=== PATIENT | female | born 1995 | race Two or more races ===

== ENCOUNTER 2022-07-18 13:38 | Emergency (ER) | payer OTHER, SELFPAY ==
--- NOTE | ~2022-07-18 | CT_ITS ---
EXAMINATION: CT HEAD WITHOUT CONTRAST CLINICAL INFORMATION: Headache and blurry vision. COMPARISON: No relevant prior imaging. TECHNIQUE: Contiguous axial imaging was performed from the skull base to vertex without intravenous administration of contrast. This CT examination was performed using dose optimization techniques as appropriate, variously including the following: *Automated exposure control *Adjustment of mA and/or kV according to patient size (this includes techniques or standardized protocols for targeted exams where dose is matched to indication/reason for exam; i.e. extremities or head) *Use of iterative reconstruction technique DLP: 635 mGy-cm FINDINGS: There is no acute intracranial hemorrhage or abnormal extra-axial collection. No intracranial mass effect or midline shift. Lateral and third ventricles are normal. No hydrocephalus. Carrillo-white matter differentiation is preserved and there is no evidence of acute territorial infarct. The calvarium and skull base are intact. Mastoid air cells and middle ear cavities are well aerated. No active paranasal sinus disease. CT/CT head/brain wo IV con IMPRESSION: Normal CT scan of the head.
--- NOTE | 2022-07-18 13:50 | ED_ITS ---
HPI - General Adult General Chief complaint: Headache <PALAK Slater - Last Filed: 07/18/22 13:53> Stated complaint: Headache/Blurry vision <PALAK Slater - Last Filed: 07/18/22 13:53> Time Seen by Provider: 07/18/22 15:07 <PALAK Slater - Last Filed: 07/18/22 13:53> History of Present Illness HPI narrative: patient complains of headache off and on for the last 6 days, headache is gradual onset no thunderclap Light does hurt her eyes there has been no vomiting there was no trauma no fever no weakness no loss of muscle strength no loss of balance no confusion the headache switches from side to side, it is accompanied but which she descr ibes as blurry vision but not a loss of vision no double vision, no difficulty ambulating no balance issues, she is eating and drinking normally no runny nose no cough no congestion no recent illness <PALAK Roth Last Filed: 07/18/22 15:36> Related Data Home medications: Previous Rx's Medication Instructions Recorded acetaminophen 500 mg tablet 1,000 mg PO TID PRN pain #30 tabs 07/18/22 ibuprofen 600 mg tablet 600 mg PO Q6H PRN pain #20 tabs 07/18/22 <PALAK Slater - Last Filed: 07/18/22 13:53> Allergies/adverse reactions: Allergies Allergy/AdvReac Type Severity Reaction Status Date / Time No Known Allergies Allergy Verified 07/18/22 13:50 <PALAK Slater Last Filed: 07/18/22 13:53> [facility] Past Medical History Source: nursing notes reviewed <PALAK Roth - Last Filed: 07/18/22 15:36> Physical Exam ED Vital Signs: Vital Signs - 24 hr 07/18/22 13:51 07/18/22 14:48 Temperature 98 F 98.3 F Pulse Rate 84 77 Respiratory Rate 18 16 Blood Pressure 113/40 L 103/63 Pulse Oximetry 99 99 Oxygen Delivery Method Room Air Room Air BMI result Body Mass Index 25.9 <PALAK Slater Last Filed: 07/18/22 13:53> Vital Signs - 24 hr 07/18/22 13:51 07/18/22 14:48 Temperature 98 F 98.3 F Pulse Rate 84 77 Respiratory Rate 18 16 Blood Pressure 113/40 L 103/63 Pulse Oximetry 99 99 Oxygen Delivery Method Room Air Room Air BMI result Body Mass Index 25.9 <PALAK Roth Filed: 07/18/22 15:36> general appearance is no acute distress, and cooperative Eyes pupils equal round reactive to light extraocular motions are intact The pharynx is clear the neck is supple the chest is clear to auscultation bilateral the heart no murmur <PALAK Roth Last Filed: 07/18/22 15:36> Course Course Course Narrative: RME performed by Marta Hill PA-C. Patient is a 26 year old female presenting to the emergency department with a headache x 6 days, blurry vision, and photosensitivity. Labs + imaging ordered. Patient placed back in waiting room pending room availability and results. <PALAK Slater Filed: 07/18/22 13:53> RME performed by Marta Hill PA-C. Patient is a 26 year old female presenting to the emergency department with a headache x 6 days, blurry vision, and photosensitivity. Labs + imaging ordered. Patient placed back in waiting room pending room availability and results. Patient with headache for 6 days was seen after results of CT scan and labs were back Head CT was normal no acute findings and blood work was nondiagnostic with no significant acute abnormalities Neurologic exam was normal and patient is well-appearing, was treated with possible migraine treatment but cause of headache is unknown She will follow with primary doctor and ambulated from ER easily <PALAK Roth Last Filed: 07/18/22 15:36> Medications Administered Discontinued Medications Generic Name Dose Route Start Last Admin Trade Name Freq PRN Reason Stop Dose Admin Dexamethasone 10 mg 07/18/22 15:21 07/18/22 15:30 Dexamethasone 2 Mg Tablet PO 07/18/22 15:22 10 mg ONCE ONE Administration Diphenhydramine HCl 25 mg 07/18/22 15:21 07/18/22 15:30 Diphenhydramine Hcl 25 Mg Capsule PO 07/18/22 15:22 25 mg ONCE ONE Administration Ketorolac Tromethamine 30 mg 07/18/22 15:21 07/18/22 15:30 Ketorolac Tromethamine 30 Mg/Ml Vial IM 07/18/22 15:22 30 mg ONCE ONE Administration <PALAK Slater - Last Filed: 07/18/22 13:53> Medications Administered Discontinued Medications Generic Name Dose Route Start Last Admin Trade Name Porsha PRN Reason Stop Dose Admin Dexamethasone 10 mg 07/18/22 15:21 07/18/22 15:30 Dexamethasone 2 Mg Tablet PO 07/18/22 15:22 10 mg ONCE ONE Administration Diphenhydramine HCl 25 mg 07/18/22 15:21 07/18/22 15:30 Diphenhydramine Hcl 25 Mg Capsule PO 07/18/22 15:22 25 mg ONCE ONE Administration Ketorolac Tromethamine 30 mg 07/18/22 15:21 07/18/22 15:30 Ketorolac Tromethamine 30 Mg/Ml Vial IM 07/18/22 15:22 30 mg ONCE ONE Administration <PALAK Roth - Last Filed: 07/18/22 15:36> Medical Decision Making Lab Data Result Diagrams: 07/18/22 14:07 07/18/22 14:07 <PALAK Slater - Last Filed: 07/18/22 13:53> Labs: Lab Results 07/18/22 07/18/22 07/18/22 Range/Units 14:07 14:07 14:07 WBC 6.1 (4.8-10.8) X10*3/uL RBC 4.86 (4.20-5.50) X10*6/uL Hgb 12.3 (12.0-16.0) g/dl Hct 38.7 (37.0-47.0) % MCV 79.6 L (80.0-98.0) fL MCH 25.3 L (27.0-33.0) pg MCHC 31.8 (31.0-35.0) g/dl RDW 13.5 (11.0-16.0) % Plt Count 318 (160-400) X10*3/uL MPV 10.3 (9.4-12.3) fL Immature Gran % (Auto) 0.3 (0.0-0.4) % Neut % (Auto) 65.5 (45-73) % Lymph % (Auto) 26.2 (20-40) % Lassen % (Auto) 6.2 (2-11) % Eos % (Auto) 1.5 (0-4) % Baso % (Auto) 0.3 (0-2) % Lymph # (Auto) 1.6 (1.2-4.9) X10*3/uL Lassen # (Auto) 0.4 (0.1-1.2) X10*3/uL Eos # (Auto) 0.1 (0.0-0.4) X10*3/uL Baso # (Auto) 0.0 (0.0-0.2) X10*3/uL Abs Immat Gran (auto) 0.02 (0.00-0.03) X10*3/uL Absolute Neuts (auto) 4.0 (2.0-8.3) x10*3/uL Absolute Nucleated RBC 0.000 (0.0-0.012) X10*3/uL Nucleated RBC % (auto) 0.0 (0.0-0.2) /100WBC ESR 12 (0-20) MM/HR Sodium 140 (135-145) mmol/L Potassium 4.2 (3.3-5.1) mmol/L Chloride 106 (96-108) mmol/L Carbon Dioxide 24 (22-29) mmol/L Anion Gap 14 (12-20) BUN 11 (9-16) mg/dL Creatinine 0.72 (0.5-1.4) mg/dL Estim Creat Clear Calc 105.2 Estimated GFR > 60 Random Glucose 103 (60-115) mg/dL Calcium 9.4 (8.4-10.2) mg/dL Magnesium 2.1 (1.6-2.6) mg/dL Total Bilirubin 0.3 (0.0-1.0) mg/dL AST 14 (5-31) U/L ALT 15 (0-31) U/L Alkaline Phosphatase 47 (39-117) U/L C-Reactive Protein < 0.10 (< or = 0.50) mg/dL Total Protein 6.8 (6.5-8.0) g/dL Albumin 4.2 (3.5-5.0) g/dL Influenza Type A (PCR) (Negative) Influenza Type B (PCR) (Negative) RSV RNA Qual (PCR) (Negative) SARS-CoV-2 RNA (RT-PCR) (Negative) 07/18/22 Range/Units 14:07 WBC (4.8-10.8) X10*3/uL RBC (4.20-5.50) X10*6/uL Hgb (12.0-16.0) g/dl Hct (37.0-47.0) % MCV (80.0-98.0) fL MCH (27.0-33.0) pg MCHC (31.0-35.0) g/dl RDW (11.0-16.0) % Plt Count (160-400) X10*3/uL MPV (9.4-12.3) fL Immature Gran % (Auto) (0.0-0.4) % Neut % (Auto) (45-73) % Lymph % (Auto) (20-40) % Lassen % (Auto) (2-11) % Eos % (Auto) (0-4) % Baso % (Auto) (0-2) % Lymph # (Auto) (1.2-4.9) X10*3/uL Lassen # (Auto) (0.1-1.2) X10*3/uL Eos # (Auto) (0.0-0.4) X10*3/uL Baso # (Auto) (0.0-0.2) X10*3/uL Abs Immat Gran (auto) (0.00-0.03) X10*3/uL Absolute Neuts (auto) (2.0-8.3) x10*3/uL Absolute Nucleated RBC (0.0-0.012) X10*3/uL Nucleated RBC % (auto) (0.0-0.2) /100WBC ESR (0-20) MM/HR Sodium (135-145) mmol/L Potassium (3.3-5.1) mmol/L Chloride (96-108) mmol/L Carbon Dioxide (22-29) mmol/L Anion Gap (12-20) BUN (9-16) mg/dL Creatinine (0.5-1.4) mg/dL Estim Creat Clear Calc Estimated GFR Random Glucose (60-115) mg/dL Calcium (8.4-10.2) mg/dL Magnesium (1.6-2.6) mg/dL Total Bilirubin (0.0-1.0) mg/dL AST (5-31) U/L ALT (0-31) U/L Alkaline Phosphatase (39-117) U/L C-Reactive Protein (< or = 0.50) mg/dL Total Protein (6.5-8.0) g/dL Albumin (3.5-5.0) g/dL Influenza Type A (PCR) NEGATIVE (Negative) Influenza Type B (PCR) NEGATIVE (Negative) RSV RNA Qual (PCR) NEGATIVE (Negative) SARS-CoV-2 RNA (RT-PCR) NEGATIVE (Negative) <PALAK Slater - Last Filed: 07/18/22 13:53> Lab Results 07/18/22 07/18/22 07/18/22 Range/Units 14:07 14:07 14:07 WBC 6.1 (4.8-10.8) X10*3/uL RBC 4.86 (4.20-5.50) X10*6/uL Hgb 12.3 (12.0-16.0) g/dl Hct 38.7 (37.0-47.0) % MCV 79.6 L (80.0-98.0) fL MCH 25.3 L (27.0-33.0) pg MCHC 31.8 (31.0-35.0) g/dl RDW 13.5 (11.0-16.0) % Plt Count 318 (160-400) X10*3/uL MPV 10.3 (9.4-12.3) fL Immature Gran % (Auto) 0.3 (0.0-0.4) % Neut % (Auto) 65.5 (45-73) % Lymph % (Auto) 26.2 (20-40) % Lassen % (Auto) 6.2 (2-11) % Eos % (Auto) 1.5 (0-4) % Baso % (Auto) 0.3 (0-2) % Lymph # (Auto) 1.6 (1.2-4.9) X10*3/uL Lassen # (Auto) 0.4 (0.1-1.2) X10*3/uL Eos # (Auto) 0.1 (0.0-0.4) X10*3/uL Baso # (Auto) 0.0 (0.0-0.2) X10*3/uL Abs Immat Gran (auto) 0.02 (0.00-0.03) X10*3/uL Absolute Neuts (auto) 4.0 (2.0-8.3) x10*3/uL Absolute Nucleated RBC 0.000 (0.0-0.012) X10*3/uL Nucleated RBC % (auto) 0.0 (0.0-0.2) /100WBC ESR 12 (0-20) MM/HR Sodium 140 (135-145) mmol/L Potassium 4.2 (3.3-5.1) mmol/L Chloride 106 (96-108) mmol/L Carbon Dioxide 24 (22-29) mmol/L Anion Gap 14 (12-20) BUN 11 (9-16) mg/dL Creatinine 0.72 (0.5-1.4) mg/dL Estim Creat Clear Calc 105.2 Estimated GFR > 60 Random Glucose 103 (60-115) mg/dL Calcium 9.4 (8.4-10.2) mg/dL Magnesium 2.1 (1.6-2.6) mg/dL Total Bilirubin 0.3 (0.0-1.0) mg/dL AST 14 (5-31) U/L ALT 15 (0-31) U/L Alkaline Phosphatase 47 (39-117) U/L C-Reactive Protein < 0.10 (< or = 0.50) mg/dL Total Protein 6.8 (6.5-8.0) g/dL Albumin 4.2 (3.5-5.0) g/dL Influenza Type A (PCR) (Negative) Influenza Type B (PCR) (Negative) RSV RNA Qual (PCR) (Negative) SARS-CoV-2 RNA (RT-PCR) (Negative) 07/18/22 Range/Units 14:07 WBC (4.8-10.8) X10*3/uL RBC (4.20-5.50) X10*6/uL Hgb (12.0-16.0) g/dl Hct (37.0-47.0) % MCV (80.0-98.0) fL MCH (27.0-33.0) pg MCHC (31.0-35.0) g/dl RDW (11.0-16.0) % Plt Count (160-400) X10*3/uL MPV (9.4-12.3) fL Immature Gran % (Auto) (0.0-0.4) % Neut % (Auto) (45-73) % Lymph % (Auto) (20-40) % Lassen % (Auto) (2-11) % Eos % (Auto) (0-4) % Baso % (Auto) (0-2) % Lymph # (Auto) (1.2-4.9) X10*3/uL Lassen # (Auto) (0.1-1.2) X10*3/uL Eos # (Auto) (0.0-0.4) X10*3/uL Baso # (Auto) (0.0-0.2) X10*3/uL Abs Immat Gran (auto) (0.00-0.03) X10*3/uL Absolute Neuts (auto) (2.0-8.3) x10*3/uL Absolute Nucleated RBC (0.0-0.012) X10*3/uL Nucleated RBC % (auto) (0.0-0.2) /100WBC ESR (0-20) MM/HR Sodium (135-145) mmol/L Potassium (3.3-5.1) mmol/L Chloride (96-108) mmol/L Carbon Dioxide (22-29) mmol/L Anion Gap (12-20) BUN (9-16) mg/dL Creatinine (0.5-1.4) mg/dL Estim Creat Clear Calc Estimated GFR Random Glucose (60-115) mg/dL Calcium (8.4-10.2) mg/dL Magnesium (1.6-2.6) mg/dL Total Bilirubin (0.0-1.0) mg/dL AST (5-31) U/L ALT (0-31) U/L Alkaline Phosphatase (39-117) U/L C-Reactive Protein (< or = 0.50) mg/dL Total Protein (6.5-8.0) g/dL Albumin (3.5-5.0) g/dL Influenza Type A (PCR) NEGATIVE (Negative) Influenza Type B (PCR) NEGATIVE (Negative) RSV RNA Qual (PCR) NEGATIVE (Negative) SARS-CoV-2 RNA (RT-PCR) NEGATIVE (Negative) <PALAK Roth - Last Filed: 07/18/22 15:36> Discharge Plan Discharge Clinical Impression: Headache <PALAK Slater - Last Filed: 07/18/22 13:53> Patient Disposition: Home, Self-Care <PALAK Slater Last Filed: 07/18/22 13:53> Additional Instructions: your head CT was normal with no evidence of tumor or bleeding or mass The headache does not seem dangerous but we are not sure what is the cause We treated in the ER for possible migraine Follow with primary doctor for further evaluation If headaches reach car and your doctor thinks this is migraine he can write for some medications to be taken right away at the start of a headache to prevent it from getting worse Return any time for worsening or more severe headache vomiting any worse condition or any concerns <PALAK Slater - Last Filed: 07/18/22 13:53> Prescriptions: New ibuprofen 600 mg tablet 600 mg PO Q6H PRN (Reason: pain) Qty: 20 0RF acetaminophen 500 mg tablet 1,000 mg PO TID PRN (Reason: pain) Qty: 30 0RF <PALAK Slater - Last Filed: 07/18/22 13:53>
[2022-07-18 13:51] VITALS: BP 113/40; PULSE 84; RESP 18; TEMP 36.6; O2SAT 99; BMI 25.9
[2022-07-18 14:12] LABS: MANUAL DIFF FLAG NO
[2022-07-18 14:17] LABS: Basophils Percent Auto 0.3 % (0-2); Eosinophils Absolute Auto 0.1 X10*3/uL (0.0-0.4); Eosinophils Percent Auto 1.5 % (0-4); Hematocrit 38.7 % (37.0-47.0); Hemoglobin 12.3 g/dl (12.0-16.0); Imm Gran Abs Auto 0.02 X10*3/uL (0.00-0.03); Imm Gran Pct Auto 0.3 % (0.0-0.4); Lymphocytes Absolute Auto 1.6 X10*3/uL (1.2-4.9); Lymphocytes Percent Auto 26.2 % (20-40); Mean Corpuscular HGB Conc 31.8 g/dl (31.0-35.0); Mean Corpuscular Hemoglobin 25.3 pg (27.0-33.0); Mean Corpuscular Volume 79.6 fL (80.0-98.0); Mean Platelet Volume 10.3 fL (9.4-12.3); Monocytes Absolute Auto 0.4 X10*3/uL (0.1-1.2); Monocytes Percent Auto 6.2 % (2-11); Neutrophils Percent Auto 65.5 % (45-73); Platelet Count 318 X10*3/uL (160-400); Red Blood Count 4.86 X10*6/uL (4.20-5.50); Red Cell Distribution Width 13.5 % (11.0-16.0); White Blood Count 6.1 X10*3/uL (4.8-10.8)
[2022-07-18 14:28] LABS: Alanine Aminotransferase 15 U/L (0-31); Albumin Level 4.2 g/dL (3.5-5.0); Alkaline Phosphatase 47 U/L (39-117); Anion Gap 14 (12-20); Aspartate Amino Transferase 14 U/L (5-31); Bilirubin Total 0.3 mg/dL (0.0-1.0); Blood Urea Nitrogen 11 mg/dL (9-16); C Reactive Protein < 0.10 mg/dL (< or = 0.50); Calcium 9.4 mg/dL (8.4-10.2); Carbon Dioxide 24 mmol/L (22-29); Chloride 106 mmol/L (96-108); Creatinine Clr Calc Pharmacy 105.2; Estimated Glomerular Filt Rate > 60; Glucose Random 103 mg/dL (60-115); Magnesium 2.1 mg/dL (1.6-2.6); Potassium 4.2 mmol/L (3.3-5.1); Sodium 140 mmol/L (135-145); Total Protein 6.8 g/dL (6.5-8.0)
[2022-07-18 14:48] VITALS: BP 103/63; PULSE 77; RESP 16; TEMP 36.8; O2SAT 99
[2022-07-18 14:54] LABS: Influenza A PCR NEGATIVE (Negative); Influenza B PCR NEGATIVE (Negative); Resp Syncy Virus RNA Qual PCR NEGATIVE (Negative); SARS COV2 PCR INHOUSE NEGATIVE (Negative)
[2022-07-18 14:57] LABS: Erythrocyte Sedimentation Rate 12 MM/HR (0-20)
[2022-07-18] MEDS: dexAMETHasone 2 MG TABLET 10 MG PO (15:30)
[2022-07-18] MEDS: Ketorolac Tromethamine 30 MG/ML VIAL IM (15:30)
[2022-07-18] MEDS: diphenhydrAMINE HCL 25 MG CAPSULE PO (15:30)
== END 2022-07-18 15:50 | disposition home or self-care (01) ==
PROVIDERS: Physician Assistant Medical; Emergency Provider Emergency Medicine; PCP Hospitalist
DX: R51.9 Headache, unspecified (principal); H53.8 Other visual disturbances; Z20.822 Contact with and (suspected) exposure to COVID-19; Z20.828 Contact with and (suspected) exposure to other viral communicable diseases; Z79.899 Other long term (current) drug therapy
CPT/HCPCS: 0241U; 36415; 70450; 80053; 83735; 85025; 85652; 86140; 96372; 99283; 99284; J1885; J8540

== ENCOUNTER 2022-08-15 13:20 | Emergency (ER) | payer OTHER, SELFPAY ==
[2022-08-15 13:38] VITALS: BP 132/72; PULSE 95; RESP 20; TEMP 36.5; O2SAT 100; BMI 26.5
--- NOTE | 2022-08-15 13:38 | ED.GENADULT ---
HPI - General Adult General Chief complaint: Weakness <Juliana Guevara CNP - Last Filed: 08/15/22 20:47> Stated complaint: Weakness/Vomiting <Juliana Guevara CNP - Last Filed: 08/15/22 20:47> Time Seen by Provider: 08/15/22 22:21 <Juliana Guevara CNP - Last Filed: 08/15/22 20:47> Source: patient <Annemarie Ramos MD - Last Filed: 08/16/22 00:28> Mode of arrival: ambulatory <Annemarie Ramos MD - Last Filed: 08/16/22 00:28> History of Present Illness HPI narrative: 26-year-old female who is diagnosed with viral infection yesterday and started having nausea and vomiting after she swallowed too close of garlic an attempt to ?get better?. She states that she feels some pressure at the epigastric and that the antinausea medication that she received earlier fall in the waiting room has not significantly reduce the pressure and she still feels mildly nauseous. Otherwise, she denies any fevers or chills. <Annemarie Ramos MD - Last Filed: 08/16/22 00:28> Related Data Home medications: Previous Rx's Medication Instructions Recorded acetaminophen 500 mg tablet 1,000 mg PO TID PRN pain #30 tabs 07/18/22 mltpbqcprn-xfhfhbqohrfvb-tcaaxgih 1 cap PO Q6H PRN pain #10 caps 07/18/22 50 mg-300 mg-40 mg capsule (Fioricet) ibuprofen 600 mg tablet 600 mg PO Q6H PRN pain #20 tabs 07/18/22 ondansetron HCl 4 mg tablet 4 mg PO Q6H PRN nausea and 08/16/22 vomiting #10 tabs <Juliana Guevara CNP - Last Filed: 08/15/22 20:47> Allergies/adverse reactions: Allergies Allergy/AdvReac Type Severity Reaction Status Date / Time No Known Allergies Allergy Verified 07/18/22 13:50 <Juliana Guevara CNP - Last Filed: 08/15/22 20:47> Review of Systems Review of Systems: Pertinent positives and negatives as stated in HPI <Annemarie Ramos MD - Last Filed: 08/16/22 00:28> [facility] Past Medical History Source: nursing notes reviewed <Annemarie Ramos MD - Last Filed: 08/16/22 00:28> Social History Social History: Social History Advance Directives: No Advance Directives Information Provided: No <Juliana GuevaraMUSTAPHA - Last Filed: 08/15/22 20:47> Physical Exam ED Vital Signs: Vital Signs - 24 hr 08/15/22 13:38 08/15/22 21:17 Temperature 97.7 F 97.8 F Pulse Rate 95 92 Respiratory Rate 20 16 Blood Pressure 132/72 116/55 L Pulse Oximetry 100 99 Oxygen Delivery Method Room Air Room Air BMI result Body Mass Index 26.5 <Juliana ParkerMUSTAPHA issa - Last Filed: 08/15/22 20:47> Vital Signs - 24 hr 08/15/22 13:38 08/15/22 21:17 Temperature 97.7 F 97.8 F Pulse Rate 95 92 Respiratory Rate 20 16 Blood Pressure 132/72 116/55 L Pulse Oximetry 100 99 Oxygen Delivery Method Room Air Room Air BMI result Body Mass Index 26.5 VITAL SIGNS: Reviewed. GENERAL: Well developed, well nourished, in no acute distress. HEAD: Normocephalic/atraumatic EYES: PERRLA, EOMI LUNGS: Normal breath sounds. No adventitious sounds or accessory muscle use. SpO2<99> CARDIOVASCULAR: Regular rate and rhythm without noted murmurs ABDOMEN: Soft, minimal discomfort in the epigastrium and no rebound, non-distended with bowel sounds. MUSCULOSKELETAL: No tenderness, deformities, or effusions noted on gross inspection. EXTREMITIES: No cyanosis, clubbing or edema. SKIN: Inspection of the skin reveals no rashes NEUROLOGIC: Alert and oriented x 4. Strength and sensation to light touch were grossly intact x 4. <Annemarie Ramos MD - Last Filed: 08/16/22 00:28> Course Course Course Narrative: This is an RME: Additional HPI, ROS, PE not included below will be deferred to primary provider. Patient is a 26-year-old female who presents emergency department for evaluation of multiple symptoms. Was experiencing upper respiratory symptoms cough, sneeze, nasal congestion for 4 days. Was seen by her primary care provider yesterday and was advised that she had a viral infection was sent home. Since early this morning she began experiencing nausea, weakness, dizziness, headache. Has not had any vomiting, has upper abdominal pain. Reports last menstrual period 1.5 weeks ago, denies possibility of she is currently on Depo-Provera. Denies genitourinary symptoms. Plan: Labs, viral testing, UA/urine preg, Zofran <Juliana Guevara CNP - Last Filed: 08/15/22 20:47> Medications Administered Discontinued Medications Generic Name Dose Route Start Last Admin Trade Name Freq PRN Reason Stop Dose Admin Ondansetron HCl 4 mg 08/15/22 23:03 08/15/22 23:33 Ondansetron Odt 4 Mg Tab.Rapdis TRANSLINGU 08/15/22 23:04 4 mg ONCE ONE Administration Ondansetron HCl 4 mg 08/15/22 13:40 08/15/22 13:44 Ondansetron Odt 4 Mg Tab.Rapdis TRANSLINGU 08/15/22 13:41 4 mg ONCE ONE Administration Simethicone 160 mg 08/15/22 23:03 08/15/22 23:35 Simethicone 80 Mg Tab.Chew PO 08/15/22 23:04 160 mg ONCE ONE Administration <Juliana Guevara CNP - Last Filed: 08/15/22 20:47> Medications Administered Discontinued Medications Generic Name Dose Route Start Last Admin Trade Name Freq PRN Reason Stop Dose Admin Ondansetron HCl 4 mg 08/15/22 23:03 08/15/22 23:33 Ondansetron Odt 4 Mg Tab.Rapdis TRANSLINGU 08/15/22 23:04 4 mg ONCE ONE Administration Ondansetron HCl 4 mg 08/15/22 13:40 08/15/22 13:44 Ondansetron Odt 4 Mg Tab.Rapdis TRANSLINGU 08/15/22 13:41 4 mg ONCE ONE Administration Simethicone 160 mg 08/15/22 23:03 08/15/22 23:35 Simethicone 80 Mg Tab.Chew PO 08/15/22 23:04 160 mg ONCE ONE Administration <Annemarie Ramos MD - Last Filed: 08/16/22 00:28> Medical Decision Making Medical Decision Making [facility] Narrative: 26-year-old female with history and clinical presentation after review of all investigations my assessment is as patient is having GI upset from swallowing whole cloves of garlic and likely subsequent mild gastritis. Patient will receive additional Zofran, Compazine, p.o. challenge, simethicone to assist in her symptoms. She is otherwise discharged home in stable condition with a prescription for Zofran. I did review patient's urinary sample, however patient is completely asymptomatic for any urinary symptoms and the distribution appears to be a dirty sample potentially contaminated with menstrual products. <Annemarie Ramos MD - Last Filed: 08/16/22 00:28> Differential Diagnosis Please see the discussion above <Annemarie Ramos MD - Last Filed: 08/16/22 00:28> Lab Data Please see the discussion above <Annemarie Ramos MD - Last Filed: 08/16/22 00:28> Result Diagrams: 08/15/22 15:27 08/15/22 15:27 <Juliana Guevara CNP - Last Filed: 08/15/22 20:47> Labs: Lab Results 08/15/22 08/15/22 08/15/22 Range/Units 02:43 15:27 15:27 WBC 7.1 (4.8-10.8) X10*3/uL RBC 5.44 (4.20-5.50) X10*6/uL Hgb 13.6 (12.0-16.0) g/dl Hct 42.5 (37.0-47.0) % MCV 78.1 L (80.0-98.0) fL MCH 25.0 L (27.0-33.0) pg MCHC 32.0 (31.0-35.0) g/dl RDW 13.2 (11.0-16.0) % Plt Count 264 (160-400) X10*3/uL MPV 9.9 (9.4-12.3) fL Immature Gran % (Auto) 0.4 (0.0-0.4) % Neut % (Auto) 81.8 H (45-73) % Lymph % (Auto) 14.7 L (20-40) % [place] % (Auto) 2.3 (2-11) % Eos % (Auto) 0.7 (0-4) % Baso % (Auto) 0.1 (0-2) % Lymph # (Auto) 1.0 L (1.2-4.9) X10*3/uL [place] # (Auto) 0.2 (0.1-1.2) X10*3/uL Eos # (Auto) 0.1 (0.0-0.4) X10*3/uL Baso # (Auto) 0.0 (0.0-0.2) X10*3/uL Abs Immat Gran (auto) 0.03 (0.00-0.03) X10*3/uL Absolute Neuts (auto) 5.8 (2.0-8.3) x10*3/uL Absolute Nucleated RBC 0.000 (0.0-0.012) X10*3/uL Nucleated RBC % (auto) 0.0 (0.0-0.2) /100WBC Sodium 139 (135-145) mmol/L Potassium 4.6 (3.3-5.1) mmol/L Chloride 105 (96-108) mmol/L Carbon Dioxide 25 (22-29) mmol/L Anion Gap 14 (12-20) BUN 10 (9-16) mg/dL Creatinine 0.69 (0.5-1.4) mg/dL Estim Creat Clear Calc 110.8 Estimated GFR > 60 Random Glucose 109 (60-115) mg/dL Calcium 9.6 (8.4-10.2) mg/dL Total Bilirubin 0.3 (0.0-1.0) mg/dL AST 19 (5-31) U/L ALT 14 (0-31) U/L Alkaline Phosphatase 47 (39-117) U/L Total Protein 7.7 (6.5-8.0) g/dL Albumin 4.6 (3.5-5.0) g/dL Lipase 21 (8-78) U/L Urine Color Urine Appearance Urine pH (5.0-9.0) Ur Specific [place] (1.005-1.025) Urine Protein (Neg-Trace) mg/dL Urine Glucose (UA) (Negative) mg/dL Urine Ketones (Negative) mg/dL Urine Blood (Negative) Urine Nitrite (Negative) Ur Leukocyte Esterase (Negative) Urine RBC (0-2) /HPF Urine WBC (0-5) /HPF Ur Squamous Epith Cells (0-2) /HPF Urine Bacteria (None Seen) Hyaline Casts (0-2) /LPF Urine Test NEGATIVE (NEGATIVE) COVID-19 (MARGARITA) (Negative) COVID-19 Clin Com Influenza Type A (ALLEN) (Negative) Influenza Type B (ALLEN) (Negative) Influenza A & B Note 08/15/22 08/15/22 08/15/22 Range/Units 15:27 15:27 15:27 WBC (4.8-10.8) X10*3/uL RBC (4.20-5.50) X10*6/uL Hgb (12.0-16.0) g/dl Hct (37.0-47.0) % MCV (80.0-98.0) fL MCH (27.0-33.0) pg MCHC (31.0-35.0) g/dl RDW (11.0-16.0) % Plt Count (160-400) X10*3/uL MPV (9.4-12.3) fL Immature Gran % (Auto) (0.0-0.4) % Neut % (Auto) (45-73) % Lymph % (Auto) (20-40) % [place] % (Auto) (2-11) % Eos % (Auto) (0-4) % Baso % (Auto) (0-2) % Lymph # (Auto) (1.2-4.9) X10*3/uL [place] # (Auto) (0.1-1.2) X10*3/uL Eos # (Auto) (0.0-0.4) X10*3/uL Baso # (Auto) (0.0-0.2) X10*3/uL Abs Immat Gran (auto) (0.00-0.03) X10*3/uL Absolute Neuts (auto) (2.0-8.3) x10*3/uL Absolute Nucleated RBC (0.0-0.012) X10*3/uL Nucleated RBC % (auto) (0.0-0.2) /100WBC Sodium (135-145) mmol/L Potassium (3.3-5.1) mmol/L Chloride (96-108) mmol/L Carbon Dioxide (22-29) mmol/L Anion Gap (12-20) BUN (9-16) mg/dL Creatinine (0.5-1.4) mg/dL Estim Creat Clear Calc Estimated GFR Random Glucose (60-115) mg/dL Calcium (8.4-10.2) mg/dL Total Bilirubin (0.0-1.0) mg/dL AST (5-31) U/L ALT (0-31) U/L Alkaline Phosphatase (39-117) U/L Total Protein (6.5-8.0) g/dL Albumin (3.5-5.0) g/dL Lipase (8-78) U/L Urine Color Yellow Urine Appearance Cloudy Urine pH >= 9.0 (5.0-9.0) Ur Specific [place] 1.015 (1.005-1.025) Urine Protein Trace (Neg-Trace) mg/dL Urine Glucose (UA) Negative (Negative) mg/dL Urine Ketones Trace (Negative) mg/dL Urine Blood Negative (Negative) Urine Nitrite Negative (Negative) Ur Leukocyte Esterase Small (1+) H (Negative) Urine RBC 3-5 H (0-2) /HPF Urine WBC 21-50 H (0-5) /HPF Ur Squamous Epith Cells 6-10 (0-2) /HPF Urine Bacteria 4+ (None Seen) Hyaline Casts 0-2 (0-2) /LPF Urine Test (NEGATIVE) COVID-19 (MARGARITA) Negative (Negative) COVID-19 Clin Com See Note Influenza Type A (ALLEN) Negative (Negative) Influenza Type B (ALLEN) Negative (Negative) Influenza A & B Note See Note <Juliana Guevara, [employer] - Last Filed: 08/15/22 20:47> Lab Results 08/15/22 08/15/22 08/15/22 Range/Units 02:43 15:27 15:27 WBC 7.1 (4.8-10.8) X10*3/uL RBC 5.44 (4.20-5.50) X10*6/uL Hgb 13.6 (12.0-16.0) g/dl Hct 42.5 (37.0-47.0) % MCV 78.1 L (80.0-98.0) fL MCH 25.0 L (27.0-33.0) pg MCHC 32.0 (31.0-35.0) g/dl RDW 13.2 (11.0-16.0) % Plt Count 264 (160-400) X10*3/uL MPV 9.9 (9.4-12.3) fL Immature Gran % (Auto) 0.4 (0.0-0.4) % Neut % (Auto) 81.8 H (45-73) % Lymph % (Auto) 14.7 L (20-40) % [place] % (Auto) 2.3 (2-11) % Eos % (Auto) 0.7 (0-4) % Baso % (Auto) 0.1 (0-2) % Lymph # (Auto) 1.0 L (1.2-4.9) X10*3/uL [place] # (Auto) 0.2 (0.1-1.2) X10*3/uL Eos # (Auto) 0.1 (0.0-0.4) X10*3/uL Baso # (Auto) 0.0 (0.0-0.2) X10*3/uL Abs Immat Gran (auto) 0.03 (0.00-0.03) X10*3/uL Absolute Neuts (auto) 5.8 (2.0-8.3) x10*3/uL Absolute Nucleated RBC 0.000 (0.0-0.012) X10*3/uL Nucleated RBC % (auto) 0.0 (0.0-0.2) /100WBC Sodium 139 (135-145) mmol/L Potassium 4.6 (3.3-5.1) mmol/L Chloride 105 (96-108) mmol/L Carbon Dioxide 25 (22-29) mmol/L Anion Gap 14 (12-20) BUN 10 (9-16) mg/dL Creatinine 0.69 (0.5-1.4) mg/dL Estim Creat Clear Calc 110.8 Estimated GFR > 60 Random Glucose 109 (60-115) mg/dL Calcium 9.6 (8.4-10.2) mg/dL Total Bilirubin 0.3 (0.0-1.0) mg/dL AST 19 (5-31) U/L ALT 14 (0-31) U/L Alkaline Phosphatase 47 (39-117) U/L Total Protein 7.7 (6.5-8.0) g/dL Albumin 4.6 (3.5-5.0) g/dL Lipase 21 (8-78) U/L Urine Color Urine Appearance Urine pH (5.0-9.0) Ur Specific [place] (1.005-1.025) Urine Protein (Neg-Trace) mg/dL Urine Glucose (UA) (Negative) mg/dL Urine Ketones (Negative) mg/dL Urine Blood (Negative) Urine Nitrite (Negative) Ur Leukocyte Esterase (Negative) Urine RBC (0-2) /HPF Urine WBC (0-5) /HPF Ur Squamous Epith Cells (0-2) /HPF Urine Bacteria (None Seen) Hyaline Casts (0-2) /LPF Urine Test NEGATIVE (NEGATIVE) COVID-19 ([facility]ARGARITA) (Negative) COVID-19 Clin Com Influenza Type A (ALLEN) (Negative) Influenza Type B (ALLEN) (Negative) Influenza A & B Note 08/15/22 08/15/22 08/15/22 Range/Units 15:27 15:27 15:27 WBC (4.8-10.8) X10*3/uL RBC (4.20-5.50) X10*6/uL Hgb (12.0-16.0) g/dl Hct (37.0-47.0) % MCV (80.0-98.0) fL MCH (27.0-33.0) pg MCHC (31.0-35.0) g/dl RDW (11.0-16.0) % Plt Count (160-400) X10*3/uL MPV (9.4-12.3) fL Immature Gran % (Auto) (0.0-0.4) % Neut % (Auto) (45-73) % Lymph % (Auto) (20-40) % [place] % (Auto) (2-11) % Eos % (Auto) (0-4) % Baso % (Auto) (0-2) % Lymph # (Auto) (1.2-4.9) X10*3/uL [place] # (Auto) (0.1-1.2) X10*3/uL Eos # (Auto) (0.0-0.4) X10*3/uL Baso # (Auto) (0.0-0.2) X10*3/uL Abs Immat Gran (auto) (0.00-0.03) X10*3/uL Absolute Neuts (auto) (2.0-8.3) x10*3/uL Absolute Nucleated RBC (0.0-0.012) X10*3/uL Nucleated RBC % (auto) (0.0-0.2) /100WBC Sodium (135-145) mmol/L Potassium (3.3-5.1) mmol/L Chloride (96-108) mmol/L Carbon Dioxide (22-29) mmol/L Anion Gap (12-20) BUN (9-16) mg/dL Creatinine (0.5-1.4) mg/dL Estim Creat Clear Calc Estimated GFR Random Glucose (60-115) mg/dL Calcium (8.4-10.2) mg/dL Total Bilirubin (0.0-1.0) mg/dL AST (5-31) U/L ALT (0-31) U/L Alkaline Phosphatase (39-117) U/L Total Protein (6.5-8.0) g/dL Albumin (3.5-5.0) g/dL Lipase (8-78) U/L Urine Color Yellow Urine Appearance Cloudy Urine pH >= 9.0 (5.0-9.0) Ur Specific [place] 1.015 (1.005-1.025) Urine Protein Trace (Neg-Trace) mg/dL Urine Glucose (UA) Negative (Negative) mg/dL Urine Ketones Trace (Negative) mg/dL Urine Blood Negative (Negative) Urine Nitrite Negative (Negative) Ur Leukocyte Esterase Small (1+) H (Negative) Urine RBC 3-5 H (0-2) /HPF Urine WBC 21-50 H (0-5) /HPF Ur Squamous Epith Cells 6-10 (0-2) /HPF Urine Bacteria 4+ (None Seen) Hyaline Casts 0-2 (0-2) /LPF Urine Test (NEGATIVE) COVID-19 (MARGARITA) Negative (Negative) COVID-19 Clin Com See Note Influenza Type A (ALLEN) Negative (Negative) Influenza Type B (ALLEN) Negative (Negative) Influenza A & B Note See Note <Annemarie Ramos MD - Last Filed: 08/16/22 00:28> External Record Review External record reviewed: Outpatient record and Prior outpatient labs <Annemarie Ramos MD - Last Filed: 08/16/22 00:28> Critical Care Time Critical Care Time Critical Care Time: Yes <Annemarie Ramos MD - Last Filed: 08/16/22 00:28> Total Critical Care Time: 30 <Annemarie Ramos MD - Last Filed: 08/16/22 00:28> Attestation: I personally attest to this time spent taking care of the patient. <Annemarie Ramos MD - Last Filed: 08/16/22 00:28> Discharge Plan Discharge Clinical Impression: Viral illness, Gastritis <Juliana Guevara CNP - Last Filed: 08/15/22 20:47> Patient Disposition: Home, Self-Care <Juliana Guevara CNP - Last Filed: 08/15/22 20:47> Instructions: Gastritis (ED), Diet for Stomach Ulcers and Gastritis (ED), Viral Syndrome (ED) <Juliana Guevara CNP - Last Filed: 08/15/22 20:47> Additional Instructions: 1. Please take the antinausea medication as prescribed. Increase the amount of water that you are drinking. You can try [id number] simethicone for the pressure and stomach gas that you are experiencing. 2. I recommend that you stick to a bland diet for the next 1-2 days, this would include dry toast, plain scrambled eggs, milk 3. Follow-up with your primary care provider on Thursday morning. Avoid any ibuprofen/Motrin/Aleve. Return to the ER for any worsening symptoms. <Juliana Guevara CNP - Last Filed: 08/15/22 20:47> Prescriptions: New ondansetron HCl 4 mg tablet 4 mg PO Q6H PRN (Reason: nausea and vomiting) Qty: 10 0RF No Action ibuprofen 600 mg tablet 600 mg PO Q6H PRN (Reason: pain) Qty: 20 0RF acetaminophen 500 mg tablet 1,000 mg PO TID PRN (Reason: pain) Qty: 30 0RF jijhebjkkf-ukdvsifqdsbeu-cjil [Fioricet] 50-300-40 mg capsule 1 cap PO Q6H PRN (Reason: pain) Qty: 10 0RF <Juliana Guevara CNP - Last Filed: 08/15/22 20:47>
[2022-08-15] MEDS: Ondansetron ODT 4 MG TAB.RAPDIS TRANSLINGU ×2 (13:44→23:33)
[2022-08-15 15:41] LABS: MANUAL DIFF FLAG NO
[2022-08-15 15:43] LABS: Basophils Percent Auto 0.1 % (0-2); Eosinophils Absolute Auto 0.1 X10*3/uL (0.0-0.4); Eosinophils Percent Auto 0.7 % (0-4); Hematocrit 42.5 % (37.0-47.0); Hemoglobin 13.6 g/dl (12.0-16.0); Imm Gran Abs Auto 0.03 X10*3/uL (0.00-0.03); Imm Gran Pct Auto 0.4 % (0.0-0.4); Lymphocytes Percent Auto 14.7 % (20-40); Mean Corpuscular Volume 78.1 fL (80.0-98.0); Mean Platelet Volume 9.9 fL (9.4-12.3); Monocytes Absolute Auto 0.2 X10*3/uL (0.1-1.2); Monocytes Percent Auto 2.3 % (2-11); Neutrophils Absolute Auto 5.8 x10*3/uL (2.0-8.3); Neutrophils Percent Auto 81.8 % (45-73); Platelet Count 264 X10*3/uL (160-400); Red Blood Count 5.44 X10*6/uL (4.20-5.50); Red Cell Distribution Width 13.2 % (11.0-16.0); White Blood Count 7.1 X10*3/uL (4.8-10.8)
[2022-08-15 15:54] LABS: Appearance Urine Cloudy; Color Urine Yellow; Glucose Urine UA Negative (Negative); Leukocyte Esterase Urine Small (1+) (Negative); Nitrite Urine Negative (Negative); PH >= 9.0 (5.0-9.0); Specific Gravity - Urine 1.015 (1.005-1.025); UMIC TRIGGER UACC YES; Urine Blood Negative (Negative); Urine Ketones Trace mg/dL (Negative); Urine Protein Trace mg/dL (Neg-Trace)
[2022-08-15 15:56] LABS: UPreg QC Valid YES; Urine Pregnancy NEGATIVE (NEGATIVE)
[2022-08-15 15:57] LABS: Alanine Aminotransferase 14 U/L (0-31); Albumin Level 4.6 g/dL (3.5-5.0); Alkaline Phosphatase 47 U/L (39-117); Anion Gap 14 (12-20); Aspartate Amino Transferase 19 U/L (5-31); Bilirubin Total 0.3 mg/dL (0.0-1.0); Blood Urea Nitrogen 10 mg/dL (9-16); Calcium 9.6 mg/dL (8.4-10.2); Carbon Dioxide 25 mmol/L (22-29); Chloride 105 mmol/L (96-108); Creatinine Clr Calc Pharmacy 110.8; Estimated Glomerular Filt Rate > 60; Glucose Random 109 mg/dL (60-115); Lipase 21 U/L (8-78); Potassium 4.6 mmol/L (3.3-5.1); Sodium 139 mmol/L (135-145); Total Protein 7.7 g/dL (6.5-8.0)
[2022-08-15 15:59] LABS: Bacteria Urine 4+ (None Seen); COVID-19 Test Negative (Negative); Hyaline Casts Urine 0-2 /LPF (0-2); IDNOW Serial# 16C4AD1C; UACC Culture Trigger YES; WBC Urine 21-50 /HPF (0-5)
[2022-08-15 16:19] LABS: IDNOW Serial# 9DB6401D; Influenza A Negative (Negative)
[2022-08-15 16:20] LABS: Influenza B2 Negative (Negative)
[2022-08-15 21:17] VITALS: BP 116/55; PULSE 92; RESP 16; TEMP 36.6; O2SAT 99
[2022-08-15] MEDS: Simethicone 80 MG TAB.CHEW 160 MG PO (23:35)
[2022-08-16] MEDS: Prochlorperazine Maleate 5 MG TABLET 10 MG PO (01:00)
== END 2022-08-16 01:10 | disposition home or self-care (01) ==
PROVIDERS: Nurse Practitioner Family; Emergency Provider Student in an Organized Health Care Education/Training Program
DX: B34.9 Viral infection, unspecified (principal); K29.70 Gastritis, unspecified, without bleeding; Z20.822 Contact with and (suspected) exposure to COVID-19; Z20.828 Contact with and (suspected) exposure to other viral communicable diseases; Z79.899 Other long term (current) drug therapy
CPT/HCPCS: 80053; 81001; 81025; 83690; 85025; 87086; 87502; 87635; 99283; 99284

== ENCOUNTER 2023-02-20 01:56 | Emergency (ER) | payer OTHER, SELFPAY ==
[2023-02-20 02:02] VITALS: BP 128/80; PULSE 97; O2SAT 98
[2023-02-20 02:03] VITALS: BP 104/34; PULSE 92; RESP 18; TEMP 37; O2SAT 97; BMI 26.0
--- NOTE | 2023-02-20 02:49 | ED_ITS ---
HPI - Abdominal Pain General Chief Complaint: Abdominal Pain Stated Complaint: nausea/ vomitting Time Seen by Provider: 02/20/23 02:49 Source: patient Mode of arrival: ambulatory Limitations: no limitations History of Present Illness HPI narrative: Patient with no significant past medical history woke yesterday at 06:00 with nausea vomiting with epigastric pain vomiting but 3 times unable to eat much , no urinary complaints had low-grade fever no upper respiratory symptoms no recent travel no seafood intake Related Data Previous Rx's Medication Instructions Recorded acetaminophen 500 mg tablet 1,000 mg (2 x 500 mg) PO TID PRN 07/18/22 pain #30 tabs ohiymizjxf-jroouerysewqd-elswzgnr 1 cap PO Q6H PRN pain #10 caps 07/18/22 50 mg-300 mg-40 mg capsule (Fioricet) ibuprofen 600 mg tablet 600 mg PO Q6H PRN pain #20 tabs 07/18/22 ondansetron HCl 4 mg tablet 4 mg PO Q6H PRN nausea and 08/16/22 vomiting #10 tabs ondansetron 4 mg disintegrating 4 mg PO Q6-8H PRN nausea and 02/20/23 tablet vomiting #10 tabs Allergies Allergy/AdvReac Type Severity Reaction Status Date / Time No Known Allergies Allergy Verified 07/18/22 13:50 Review of Systems Review of Systems Yes all other systems are reviewed and are negative [facility] Social History Social History Advance Directives: No Advance Directives Information Provided: No Physical Exam ED Vital Signs: Vital Signs - 24 hr 02/20/23 02:03 Temperature 98.6 F Pulse Rate 92 Respiratory Rate 18 Blood Pressure 104/34 L Pulse Oximetry 97 Oxygen Delivery Method Room Air BMI result Body Mass Index 26.0 Appearance: Alert. Oriented X3. No acute distress. Eyes: No pallor/icterus ENT: Pharynx normal. Oral Mucosa moist Neck: Normal inspection. Neck supple. CVS: Normal heart rate and rhythm. Pulses normal. Respiratory: No respiratory distress. Equal air entry bilateral, no wheezing/rales/rhonchi Abdomen: Soft mild epigastric tenderness no rebound tenderness or guarding, Bowel sounds are present, no mass palpable, no CVA tenderness Skin: Skin warm and dry. Normal skin color. Normal skin turgor. Neuro: Oriented X 3. Medical Decision Making Lab Data [facility] Lab Attestation statement: I reviewed the patient's lab results. Labs: Lab Results 02/20/23 Range/Units 03:05 Urine Color Yellow Urine Appearance Clear Urine pH 5.5 (5.0-9.0) Ur Specific [place] 1.010 (1.005-1.025) Urine Protein Negative (Neg-Trace) mg/dL Urine Glucose (UA) Negative (Negative) mg/dL Urine Ketones Negative (Negative) mg/dL Urine Blood Negative (Negative) Urine Nitrite Negative (Negative) Ur Leukocyte Esterase Negative (Negative) Urine Test NEGATIVE (NEGATIVE) Medications Administered Discontinued Medications Generic Name Dose Route Start Last Admin Trade Name Freq PRN Reason Stop Dose Admin Al Hydroxide/Mg Hydroxide 30 ml 02/20/23 02:56 02/20/23 03:17 Magnesium Hydrox/Alum Hydrox 30 Ml Oral.Susp PO 02/20/23 02:57 30 ml ONCE ONE Administration Ondansetron HCl 4 mg 02/20/23 02:56 02/20/23 03:17 Ondansetron Odt 4 Mg Tab.Rapdis TRANSLINGU 02/20/23 02:57 4 mg ONCE ONE Administration Ondansetron HCl 4 mg 02/20/23 04:14 02/20/23 04:31 Ondansetron Odt 4 Mg Tab.Rapdis TRANSLINGU 02/20/23 04:15 4 mg ONCE ONE Administration Discharge Plan Discharge Clinical Impression: Gastroenteritis Patient Disposition: Home, Self-Care Instructions: Acute Nausea and Vomiting (ED) Additional Instructions: Plenty of fluids Meds for nausea as advised For with PCP if not better Prescriptions: New ondansetron 4 mg tablet,disintegrating 4 mg PO Q6-8H PRN (Reason: nausea and vomiting) Qty: 10 0RF No Action ibuprofen 600 mg tablet 600 mg PO Q6H PRN (Reason: pain) Qty: 20 0RF acetaminophen 500 mg tablet 1,000 mg PO TID PRN (Reason: pain) Qty: 30 0RF qkzvsfokpq-xtzhsbaeljfyc-ksve [Fioricet] 50-300-40 mg capsule 1 cap PO Q6H PRN (Reason: pain) Qty: 10 0RF ondansetron HCl 4 mg tablet 4 mg PO Q6H PRN (Reason: nausea and vomiting) Qty: 10 0RF Interventions: ED Discharge Assessment Last Done: 02/20/23 04:33 Discharge Date/Time: 02/20/23 04:33
[2023-02-20] MEDS: Ondansetron ODT 4 MG TAB.RAPDIS TRANSLINGU ×2 (03:17→04:31)
[2023-02-20] MEDS: Magnesium Hydrox/Alum Hydrox 30 ML ORAL.SUSP PO (03:17)
[2023-02-20 03:20] LABS: Appearance Urine Clear; Color Urine Yellow; Glucose Urine UA Negative (Negative); Leukocyte Esterase Urine Negative (Negative); Nitrite Urine Negative (Negative); PH 5.5 (5.0-9.0); Urine Blood Negative (Negative); Urine Ketones Negative (Negative); Urine Protein Negative (Neg-Trace)
[2023-02-20 03:21] LABS: UPreg QC Valid YES; Urine Pregnancy NEGATIVE (NEGATIVE)
== END 2023-02-20 04:33 | disposition home or self-care (01) ==
PROVIDERS: Emergency Provider Internal Medicine
DX: K52.9 Noninfective gastroenteritis and colitis, unspecified (principal); R11.2 Nausea with vomiting, unspecified
CPT/HCPCS: 81003; 81025; 99283

== ENCOUNTER 2023-03-24 03:20 | Emergency (ER) | payer OTHER, SELFPAY ==
[2023-03-24 03:24] VITALS: BP 100/58; PULSE 89; RESP 16; TEMP 36.5; O2SAT 98; BMI 24.7
--- NOTE | 2023-03-24 03:50 | ED.GENADULT ---
HPI - General Adult General Chief complaint: Abdominal Pain Stated complaint: Vaginal Pain Time Seen by Provider: 03/24/23 03:49 Source: patient and family ( Spouse) Mode of arrival: ambulatory Limitations: no limitations History of Present Illness HPI narrative: 27-year-old female came in for evaluation of dysuria, frequency urination, pelvic pain and pressure symptoms started 1 day, patient just finished her period today, sexually active with 1 partner patient declined any chance a risk for STD no vaginal discharge, never had similar symptoms in the past. No fever, no chills , Not . No history of intra-abdominal surgeries. Related Data Previous Rx's Medication Instructions Recorded acetaminophen 500 mg tablet 1,000 mg (2 x 500 mg) PO TID PRN 07/18/22 pain #30 tabs [id number]-lkehvqrshdwvi-tkqbwndn 1 cap PO Q6H PRN pain #10 caps 07/18/22 50 mg-300 mg-40 mg capsule (Fioricet) ibuprofen 600 mg tablet 600 mg PO Q6H PRN pain #20 tabs 07/18/22 ondansetron HCl 4 mg tablet 4 mg PO Q6H PRN nausea and 08/16/22 vomiting #10 tabs ondansetron 4 mg disintegrating 4 mg PO Q6-8H PRN nausea and 02/20/23 tablet vomiting #10 tabs cefuroxime axetil 500 mg tablet 500 mg PO BID #14 tabs 03/24/23 Allergies Allergy/AdvReac Type Severity Reaction Status Date / Time No Known Allergies Allergy Verified 07/18/22 13:50 Review of Systems Review of Systems: All other systems are reviewed and are negative Constitutional: Reports as per HPI and Reports no additional constitutional complaints Eyes: Reports as per HPI and Reports no additional eye complaints Reports system reviewed and no additional complaints, except as documented Cardiovascular: Reports as per HPI and Reports no additional cardiovascular complaints Respiratory: Reports as per HPI and Reports no additional respiratory complaints Gastrointestinal: Reports as per HPI and Reports no additional gastrointestinal complaints Genitourinary: Reports no additional female genitourinary complaints Musculoskeletal: Reports no additional musculoskeletal complaints Skin/Breast: Reports system reviewed and no additional complaints, except as docu Psychiatric: Reports no additional psychiatric complaints Endocrine: Reports no additional endocrine complaints Hematologic/Lymphatic: Reports no additional hematologic/lymphatic complaints Allergic/Immunologic: Reports no additional allergic/immunologic complaints Reports system reviewed and no additional complaints, except as documented and Reports Abnormal speech present [facility] Social History Social History Smoked in Last 30 Days: No Use of substances other than those prescribed or required for medical reasons: No Advance Directives: No Advance Directives Information Provided: Yes Patient : No Physical Exam ED Vital Signs: Vital Signs - 24 hr 03/24/23 03:24 03/24/23 04:14 03/24/23 05:21 Temperature 97.7 F 97.7 F 98.0 F Pulse Rate 89 84 83 Respiratory Rate 16 16 16 Blood Pressure 100/58 L 99/60 98/54 L Pulse Oximetry 98 97 99 Oxygen Delivery Method Room Air Room Air Room Air BMI result Body Mass Index 24.7 Vital signs have been reviewed and appear to be correct. Blood pressure elevated. Heart rate normal. Respiratory rate normal. Temperature normal. Oxygen saturation normal. Appearance: Alert. Oriented X3. No acute distress. Head: Normal external exam. Normocephalic. Atraumatic. No Hoffman signs noted. No raccoon eyes noted Eyes: PERRLA. EOMI. Conjunctiva and sclera normal. Eyelids normal. ENT: TM's Normal. Pharynx normal. Uvula midline. Moist mucous membranes. No trismus noted. No drooling noted. No muffled voice noted. Neck: Normal inspection. Neck supple. FROM. No adenopathy. Thyroid Normal. No meningeal signs. No neck mass noted. CVS: Normal heart rate and rhythm. Heart sound normal. No murmurs noted. Pulses normal throughout. Respiratory: No respiratory distress. Painless inspiration. Breath sounds normal. No wheezes/rales/rhonchi noted. Chest nontender. No accessory muscle usage noted or decreased air movement noted. Abdomen: Soft and nontender. Bowel sounds normal in all 4 quadrants. No distention noted. No organomegaly noted. No visible injury noted. Pelvic exam: no rashes or lesions, no CMT, no palpable adnexa. no vaginal bleed, scant white cottage cheese discharge in the vault. Back: No CVA tenderness. Full range of motion noted. Skin: Skin warm and dry. Normal skin color. Normal skin turgor. No rashes/lesions/lacerations noted. Extremities: No lower extremity edema. Extremities exhibit normal range of motion. Extremities nontender. Neuro: Oriented X 3. Cranial nerve exam: II-XII are grossly intact No motor deficit. No sensory deficit. Reflexes normal. Course Reevaluation(s) Reevaluation #1: 27-year-old female came in with pelvic pain and urinary tract infection symptoms, pelvic exam revealed possible Candidal infection and bacterial infection. Start the patient on cefuroxime and will give 1 dose of Diflucan in the emergency department patient was encouraged to drink plenty of fluids. Time: 05:31 Medications Administered Discontinued Medications Generic Name Dose Route Start Last Admin Trade Name Freq PRN Reason Stop Dose Admin Cefuroxime Axetil 500 mg 03/24/23 04:28 03/24/23 04:34 Cefuroxime Axetil 500 Mg Tablet PO 03/24/23 04:29 500 mg ONCE ONE Administration Medical Decision Making Differential Diagnosis Differential Diagnoses: The differential diagnosis associated with the presentation includes ( UTI, yeast infection, STD, ovarian cyst, , anemia, severe electrolyte abnormality.) Admission/Observation Consideration of admission/observation: Escalation of care including admission/observation considered Lab Data MDM Lab Attestation statement: I reviewed the patient's lab results. 03/24/23 04:12 03/24/23 04:13 Labs: Lab Results 03/24/23 03/24/23 Range/Units 04:12 04:13 WBC 14.0 H (4.8-10.8) X10*3/uL RBC 4.81 (4.20-5.50) X10*6/uL Hgb 12.2 (12.0-16.0) g/dl Hct 37.8 (37.0-47.0) % MCV 78.6 L (80.0-98.0) fL MCH 25.4 L (27.0-33.0) pg MCHC 32.3 (31.0-35.0) g/dl RDW 13.5 (11.0-16.0) % Plt Count 260 (160-400) X10*3/uL MPV 10.4 (9.4-12.3) fL Absolute Nucleated RBC 0.000 (0.0-0.012) X10*3/uL Nucleated RBC % (auto) 0.0 (0.0-0.2) /100WBC Sodium 137 (135-145) mmol/L Potassium 3.7 (3.3-5.1) mmol/L Chloride 104 (96-108) mmol/L Carbon Dioxide 23 (22-29) mmol/L Anion Gap 14 (12-20) BUN 18 H (9-16) mg/dL Creatinine 0.66 (0.5-1.4) mg/dL Estim Creat Clear Calc 111.2 Estimated GFR > 60 Random Glucose 100 (60-115) mg/dL Calcium 9.1 (8.4-10.2) mg/dL Total Bilirubin 0.3 (0.0-1.0) mg/dL AST 16 (5-31) U/L ALT 8 (0-31) U/L Alkaline Phosphatase 40 (39-117) U/L Total Protein 6.9 (6.5-8.0) g/dL Albumin 4.0 (3.5-5.0) g/dL Lipase 29 (8-78) U/L Urine Color Yellow Urine Appearance Cloudy Urine pH 7.5 (5.0-9.0) Ur Specific [place] 1.015 (1.005-1.025) Urine Protein 300 (3+) H (Neg-Trace) mg/dL Urine Glucose (UA) Negative (Negative) mg/dL Urine Ketones Negative (Negative) mg/dL Urine Blood Large (3+) H (Negative) Urine Nitrite Negative (Negative) Ur Leukocyte Esterase Large (3+) H (Negative) Urine RBC >20 H (0-2) /HPF Urine WBC >50 H (0-5) /HPF Ur Squamous Epith Cells 0-2 (0-2) /HPF Urine Bacteria None Seen (None Seen) Hyaline Casts 0-2 (0-2) /LPF Urine Test NEGATIVE (NEGATIVE) Discharge Plan Discharge Clinical Impression: UTI (urinary tract infection) Qualifiers: Urinary tract infection type: acute cystitis Hematuria presence: without hematuria Qualified Code(s): N30.00 - Acute cystitis without hematuria Patient Disposition: Home, Self-Care Instructions: Urinary Tract Infection in Women (ED) Prescriptions: New cefuroxime axetil 500 mg tablet 500 mg PO BID Qty: 14 0RF No Action ibuprofen 600 mg tablet 600 mg PO Q6H PRN (Reason: pain) Qty: 20 0RF acetaminophen 500 mg tablet 1,000 mg PO TID PRN (Reason: pain) Qty: 30 0RF jhagaxbsug-oppububtpoaru-cbyi [Fioricet] 50-300-40 mg capsule 1 cap PO Q6H PRN (Reason: pain) Qty: 10 0RF ondansetron HCl 4 mg tablet 4 mg PO Q6H PRN (Reason: nausea and vomiting) Qty: 10 0RF ondansetron 4 mg tablet,disintegrating 4 mg PO Q6-8H PRN (Reason: nausea and vomiting) Qty: 10 0RF
[2023-03-24 04:14] VITALS: BP 99/60; PULSE 84; RESP 16; TEMP 36.5; O2SAT 97
[2023-03-24 05:21] VITALS: BP 98/54; PULSE 83; RESP 16; TEMP 36.7; O2SAT 99
--- NOTE | 2023-03-24 05:22 | MHC.EDTECH ---
THIS PCT SET UP AND NEWS SPECIALIST DR CANALES DURING PATIENT VAGINAL EXAM ,VITALS TAKEN ,PT AT BEDSIDE ,NO APPARENT DISTRESS AT THIS TIME ,WILL CONTINUE TO MONITOR .
== END 2023-03-24 05:54 | disposition home or self-care (01) ==
PROVIDERS: Emergency Provider Emergency Medicine
DX: N39.0 Urinary tract infection, site not specified (principal); R30.0 Dysuria; R10.2 Pelvic and perineal pain; Z79.899 Other long term (current) drug therapy
CPT/HCPCS: 36415; 80053; 81001; 81025; 83690; 85027; 87086; 87088; 87186; 99283; 99284